=== PATIENT | female | born 1990 | race Caucasian/White ===

== ENCOUNTER 2016-11-12 09:45 | Emergency (ER) | payer OTHER ==
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
[2016-11-12] MEDS ORDERED: PRENATAL TABLE1 EAC1 PO (09:56)
[2016-11-12] MEDS ORDERED: DICLEGIS DR 101 EACH PO (09:57)
[2016-11-12 10:16] LABS: URINE SOURCE CLEAN CATCH
[2016-11-12 10:18] LABS: MICRO INDICATED? YES; URINE APPEARANCE CLEAR; URINE BILIRUBIN NEG (NEG); URINE BLOOD NEG (NEG); URINE COLOR YELLOW; URINE GLUCOSE NEG (NORM); URINE KETONE NEG (NEG); URINE LEUKOCYTE ESTERASE 3+ (NEG); URINE NITRATE NEG (NEG); URINE PROTEIN NEG (NEG); URINE SPECIFIC GRAVITY <=1.005 (1.003-1.035); URINE UROBILINOGEN 0.2 MG/DL (NORM)
[2016-11-12 10:31] LABS: CULTURE INDICATED? YES; URINE BACTERIA 1+ (NEG); URINE RBC 0-2 /[HPF] (0-2); URINE SQUAMOUS EPITHELIAL CELL FEW /[HPF]
[2016-11-12 11:54] LABS: BASOPHIL# 0.1 X10e3 (0-0.3); BASOPHIL% 0.5 % (0-2.5); EOSINOPHIL% 0.1 % (0.0-7.0); HEMATOCRIT 33.8 % (35.0-45.0); HEMOGLOBIN 12.1 gm/dL (12.0-16.0); LYMPHOCYTE% 19.2 % (17.0-45.0); MEAN CELL VOLUME 92.6 FL (83-96); MEAN CORPUSCULAR HEMOGLOBIN 33.2 PG (28-34); MEAN CORPUSCULAR HGB CONC 35.8 g/dL (30-36); MEAN PLATELET VOLUME 7.9 FL (6.5-11.5); MONOCYTE# 0.4 X10e3 (0-1.0); MONOCYTE% 4.2 % (3.0-12.0); NEUTROPHIL# 7.7 X10e3 (1.5-7.1); PLATELET COUNT 180 X10e3 (140-420); RED BLOOD COUNT 3.65 X10e (3.90-5.30); RED CELL DISTRIBUTION WIDTH 12.8 % (11.0-15.5); WHITE BLOOD COUNT 10.2 X10e3 (4.0-10.5)
[2016-11-12 11:57] LABS: DIFF IND NO
[2016-11-12 12:35] LABS: ALBUMIN SERUM 3.9 g/dL (3.5-5.0); BILIRUBIN,TOTAL 0.7 mg/dL (0.2-2.0); CALCIUM SERUM 8.4 mg/dL (8.4-10.2); CREATININE SERUM 0.5 mg/dL (0.6-1.4); GLOM FILT RATE Estimated 135.5 mL/min (>60); POTASSIUM 3.6 mmol/L (3.5-5.1); PROTEIN TOTAL SERUM 6.6 g/dL (6.0-8.3)
== END 2016-11-12 15:26 | disposition home or self-care (01) ==
LOC: SED 09:45
PROVIDERS: Physician Assistant
DX: O9A.211 Injury, poisoning and certain other consequences of external causes complicating pregnancy, first trimester (principal); S39.91XA Unspecified injury of abdomen, initial encounter; Z3A.11 11 weeks gestation of pregnancy; Z79.899 Other long term (current) drug therapy; V49.40XA Driver injured in collision with unspecified motor vehicles in traffic accident, initial encounter
CPT/HCPCS: 36415; 74181; 80053; 81003; 85025; 86900; 86901; 87086; 99284